=== PATIENT | female | born 1925 | race Caucasian/White ===

== ENCOUNTER → 2016-10-07 | Outpatient (CLI) | payer MEDICARE, BC ==
[~2016-10-07] MED LIST: ACETAMINOPHEN PO; ALEVE PO; AMIODARONE PO; ARIXTRA7.5 MG/0.6 SUBQ; ASPIRIN ENTERI325 M1 PO; ASPIRIN81 M1; ASPIRIN81 M1 PO; ASPIRINEC PO; COREG12.5 MG PO; CORRECTOL5 MG PO; COUMADIN2.5 MG PO; COUMADIN5 MG; COUMADIN5 MG PO; DOXYCYCLINE HY100 M1 PO; FOLIC ACID1 MG PO; HCTZ PO; IMDUR-ER30 MG PO; K-DUR20 ME1 PO; LASIX20 MG PO; NEXIUM PO; NISOLDIPINE40 MG PO; NITROGLYGERIN0.4 MG SL; PLAVIX PO; POTASSIUM CHLO10 ME1 PO; PROAMATINE10 MG; PROTONIX PO; RISPERDAL0.25 MG PO; RISPERIDONE PO; SIMVASTATIN40 MG PO; TOPROL XL 50 MG50 MG PO; VIT B12 SUBQ; VITAMIN B122500 MCG PO
--- NOTE | ~2016-10-07 | CT71 ---
[facility] A Service of [facility] RADIOLOGY TEXT RESULTS PATIENT: KARLEE BARDALES LOCATION: [facility] : [birth year] UNIT #: [id number] AGE: [address]: Dusty Ayala MD SEX: F ORDER DR: [id number] [facility] [address] [facility] [address] [facility]. [place], [place] [address] [id number] O MR#: [id number] #: [id number] NAME: KARLEE BARDALES : 1925 SEX: F STUDY DATE/TIME: 10/07/2016 13:42 UNIT: [facility] ROOM: STUDY DESCRIPTION: CT Head Wo Contrast Attending Physician: Dusty Ayala M.D. Referring Physician: Dusty Ayala M.D. Ordering Physician: Dusty Ayala M.D. Primary Care Physician: Dusty Ayala M.D. MEDICAL IMAGING REPORT This report is preliminary unless electronic signature is present EXAM CT head. DATE OF EXAM 10/07/2016 HISTORY Dementia. Dizziness, stumbling around 5-6 years. Falling 1-[address] head performed skull base through vertex without intravenous contrast. This CT exam was performed with one or more of the following radiation dose reduction techniques: automatic exposure control, adjustment of mA and/or kV according to patient size, and iterative reconstruction. COMPARISON 12/23/2009 FINDINGS The brainstem is unremarkable. The cerebellum and cerebral hemispheres show normal parker matter-white matter differentiation. No hemorrhage. No evidence of acute cortical ischemia. Extensive subcortical periventricular and deep white matter tract hypodensities bilaterally, relatively symmetrically. Significantly increased from 2009 and given patient's age and statistics, most likely reflecting sequelae of chronic microvascular ischemia. The midline structures are nondisplaced. The basal ganglia show no acute appearing abnormality. The ventricles, cisterns and sulci show mild generalized enlargement consistent with mild generalized atrophy. Slightly more pronounced than on prior examination. There is no intra or extraaxial mass effect or abnormal intracranial fluid collection. The intraorbital soft tissues are unremarkable. The visualized paranasal sinuses and mastoid air cells show areas of mild STS. [facility] A Service of [facility] RADIOLOGY TEXT RESULTS PATIENT: KARLEE BARDALES [id number] [birth year] UNIT #: [id number] AGE: [address]: Dusty Ayala MD SEX: F ORDER DR: mucosal thickening and ethmoid air cells. No evidence of acute sinusitis. No acute bony abnormality. IMPRESSION 1. No acute abnormality is seen in the brain. If the patient has ongoing neurological symptoms, consider follow-up imaging, preferable with MRI if the patient is a candidate. 2. Extensive subcortical periventricular and deep white matter tract probable sequelae of chronic microvascular ischemia. Significantly increased from 2009. 3. Mild generalized atrophy, more pronounced than in 2010. 4. Vascular calcifications. 5. Areas of mild mucosal thickening ethmoid air cells. No indication of acute sinusitis. Dictated by... Sandeep Bernard M.D. THIS IS AN ELECTRONICALLY VERIFIED REPORT Sandeep Bernard M.D. at 10/12/2016 10:29 AM Elizabeth TD: 10/07/2016 21:26 JOB #: [id number] MEDICAL IMAGING REPORT Page 1 of 1 COPY
== END | disposition home or self-care (01) ==
LOC: CCAT 13:09
DX: F03.90 Unspecified dementia, unspecified severity, without behavioral disturbance, psychotic disturbance, mood disturbance, and anxiety (principal); G31.9 Degenerative disease of nervous system, unspecified; J32.2 Chronic ethmoidal sinusitis
CPT/HCPCS: 70450

== ENCOUNTER 2016-10-29 07:30 | Emergency (ER) | payer MEDICARE, BC ==
[~2016-10-29 07:30] MED LIST changes: -ACETAMINOPHEN PO; -AMIODARONE PO; -ASPIRINEC PO; -COREG12.5 MG PO; -COUMADIN2.5 MG PO; -COUMADIN5 MG PO; -LASIX20 MG PO; -NEXIUM PO; -NITROGLYGERIN0.4 MG SL; -POTASSIUM CHLO10 ME1 PO; -RISPERDAL0.25 MG PO; -RISPERIDONE PO; -VITAMIN B122500 MCG PO
== END 2016-10-29 08:51 | disposition home or self-care (01) ==
LOC: CED 07:30
DX: S61.412A Laceration without foreign body of left hand, initial encounter (principal); I10 Essential (primary) hypertension; F41.9 Anxiety disorder, unspecified; F32.9 Major depressive disorder, single episode, unspecified; Z88.8 Allergy status to other drugs, medicaments and biological substances; K21.9 Gastro-esophageal reflux disease without esophagitis; Z88.2 Allergy status to sulfonamides; W19.XXXA Unspecified fall, initial encounter; Y92.009 Unspecified place in unspecified non-institutional (private) residence as the place of occurrence of the external cause; Z23 Encounter for immunization
CPT/HCPCS: 12001; 90471; 90715; 99283

== ENCOUNTER 2016-12-13 18:48 | Observation (INO) | payer MEDICARE, BC, OTHER ==
--- NOTE | ~2016-12-13 | EKG ---
PATIENT: KARLEE BARDALES UNIT #: [id number] Ventricular Rate: 72 BPM Atrial Rate: 72 BPM P-R Interval: 150 ms QRS Duration: 84 ms Q-T Interval: 410 ms QTC Calculation(Bezet): 448 ms P [place]: 73 degrees Calculated R [place]: 43 degrees Calculated T [place]: 21 degrees Diagnosis Line: Normal sinus rhythm Diagnosis Line: Normal ECG Diagnosis Line: When compared with ECG of 13-DEC-2016 20:23, Diagnosis Line: (unconfirmed) Diagnosis Line: No significant change was found Diagnosis Line: Confirmed by ELDA DUTTON MD ([id number]) on 12/15/2016 Diagnosis Line: 3:00:34 PM INTERPRETING MD: NATO SANTAMARIA
--- NOTE | ~2016-12-13 | HP ---
Unit #: [id number] #: [id number] Patient: KARLEE BARDALES [id number] [address] [place], [place] [address] [id number] I MR#: [id number] NAME: KARLEE BARDALES ROOM: 301 Age: 89 Sex: F Admission Date: 12/13/2016 : 1925 Attending Physician: Triston Schwab M.D. Primary Care Physician: Dusty Ayala M.D. HISTORY AND PHYSICAL CHIEF COMPLAINT Unwitnessed syncopal episode. HISTORY OF PRESENT ILLNESS This pleasant 89-year-old female with CAD, hypertension, dementia, is admitted for syncopal episodes. The patient's daughter found the patient lying on the floor, awake in her own home complaining of neck pain, left knee pain with left leg weakness secondary to left leg pain. She was brought to this emergency department tonight with fairly stable vital signs, although she was hypertensive. Multiple x-rays were performed which were negative for acute fracture. The patient does have dementia and she is a bit confused but believes that she passed out four or five times over the past several days without preceding symptoms. She states that she would find herself on the floor in another room, occasionally, this is associated with urinary incontinence. The patient was placed on Lasix a couple of weeks ago for pedal edema but, otherwise, no medication changes. Workup thus far shows hypokalemia. PAST MEDICAL HISTORY 1. Essential hypertension. 2. Hyperlipidemia. 3. Dementia. 4. 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 5. CAD status post PCI and stents followed by Dr. Geronimo. 6. Polyp removed in the colon. 7. Partial colectomy. 8. Hysterectomy. ALLERGIES Lipitor, Bactrim, Codeine. HOME MEDICATIONS 1. PRN Tylenol. 2. Aspirin 81 mg daily. 3. Coreg 12.5 mg b.i.d. 4. Nexium 40 mg daily as needed. 5. Folic acid 1 mg daily. 6. Lasix 20 mg daily, recently started. 7. Nitroglycerin p.r.n. 8. Potassium 10 mEq daily. 9. Risperdal 0.25 mg b.i.d. 10. Vitamin B12 1,000 mcg daily. Unit #: [id number] #: [id number] Patient: KARLEE BARDALES 11. Coumadin 5 mg daily except for 2.5 mg on Tuesdays and Fridays. SOCIAL HISTORY The patient lives alone. She is accompanied by her daughter. The patient is a lifelong smoker, rarely drinks alcohol. FAMILY HISTORY Noncontributory given the patient's age. REVIEW OF SYSTEMS Difficult to obtain as the patient is pleasantly confused and a poor historian. PHYSICAL EXAMINATION GENERAL APPEARANCE: A pleasant, young appearing, 89-year-old female currently in no acute distress. VITAL SIGNS: Temperature 98.1. Pulse 86. Respirations 12. Blood pressure 132/121. O2 saturation 100% on room air. HEENT: Eyes: PERRLA. Extraocular muscles are intact. Pharynx is benign. NECK: Supple without adenopathy or thyromegaly. CHEST: Clear on patient's supine exam. CARDIAC: Normal S1, S2 without S3, S4 or murmur. ABDOMEN: Bowel sounds are present. No hepatosplenomegaly, tenderness or masses. EXTREMITIES: Mild erythema of the left leg, right edema as compared to the left. There is a left knee effusion with quite a bit of left knee pain and maybe some left hip pain with movement of the left leg. The patient has a large bruise right calf. NEUROLOGIC: The patient is awake, alert. She is oriented to person. Her cranial nerves are intact. She has equal strength in the upper arms, is weak in the left leg secondary to left knee pain. DIAGNOSTIC STUDIES LABORATORY: Admission labs: Hematocrit 35.4, normal white count, platelet count. INR 1.7. SMA-12: Glucose 111, sodium 133, potassium 2.9, chloride 97, albumin 3.3. Cardiac markers were not done. Urinalysis: 1+ blood without significant white or red cells. IMAGING: Head CT: Atrophy, small vessel ischemic disease. CT of the C-spine, multilevel DJD. X-ray of the left knee: Moderate left knee effusion. Chest x-ray: Borderline sized heart. CARDIOVASCULAR: EKG: Normal sinus rhythm. Rate 75 with T-wave inversions noted in III and aVF. ASSESSMENT 1. Unwitnessed syncopal episodes. 2. CAD status post multivessel PCI and stent. 3. History of recurrent DVTs. The patient is anticoagulated with a slightly subtherapeutic INR. 4. Hypokalemia. Patient was started on Lasix a couple of weeks ago for pedal edema. 5. Dementia. 6. Hypertension. PLANS 1. Check cardiac enzymes. Unit #: [id number] #: [id number] Patient: KARLEE BARDALES 2. Replace potassium. Check magnesium. 3. X-ray of the left hip and pelvis. 4. Obtain Holter monitor, echo, EEG and ask Cardiology to see. 5. Physical Therapy to see. 6. Check orthostatics. Dictated by Gabriela Murdock M.D. AML/bd TD: 12/14/2016 06:20 JOB #: [id number] HISTORY AND PHYSICAL Page 1 of 1 X Gabriela Murdock MD HISTORY AND PHYSICAL
--- NOTE | ~2016-12-13 | CR169 ---
[facility] A Service of [facility] & [facility] RADIOLOGY TEXT RESULTS PATIENT: KARLEE BARDALES LOCATION: [facility] 301- : [birth year] UNIT #: [id number] AGE: [address]: Triston Schwab MD SEX: F ORDER DR: [id number] [facility] [address] [facility]. [place], [place] [address] [id number] I MR#: [id number] Acc #: [id number] NAME: KARLEE BARDALES : 1925 SEX: F STUDY DATE/TIME: 12/13/2016 20:44 UNIT: [address] ROOM: [facility] STUDY DESCRIPTION: CR Knee 2 Views Lt Attending Physician: Triston Schwab M.D. Ordering Physician: Chance Martinez M.D. Primary Care Physician: Dusty Ayala M.D. MEDICAL IMAGING REPORT This report is preliminary unless electronic signature is present EXAM Left knee, 2 views, 12/13/2016. HISTORY Left knee pain today status post fall. FINDINGS Two views of the left knee demonstrate no fracture. The bones are osteopenic. There is chondrocalcinosis involving the medial and lateral compartments of the knee. There is a moderate sized joint effusion. Atherosclerotic calcification is seen in the popliteal fossa. IMPRESSION 1. Osteopenia. No evidence of fracture. 2. Moderate-sized joint effusion. Dictated by... Bert Snow M.D. THIS IS AN ELECTRONICALLY VERIFIED REPORT Bert Snow M.D. at 12/15/2016 6:20 AM NASIR/allie TD: 12/14/2016 15:57 JOB #: [id number] MEDICAL IMAGING REPORT Page 1 of 1 COPY
--- NOTE | ~2016-12-13 | CT71 ---
[facility] A Service of [facility] RADIOLOGY TEXT RESULTS PATIENT: KARLEE BARDALES LOCATION: [facility] 301- : [birth year] UNIT #: [id number] AGE: [address]: Triston Schwab MD SEX: F ORDER DR: [id number] [facility] [address] [facility]. [place], [place] [address] [id number] I MR#: [id number] Acc #: [id number] NAME: KARLEE BARDALES : 1925 SEX: F STUDY DATE/TIME: 12/13/2016 20:56 UNIT: A U ROOM: [facility] STUDY DESCRIPTION: CT Head Wo Contrast Attending Physician: Triston Schwab M.D. Ordering Physician: Chance Martinez M.D. Primary Care Physician: Dusty Ayala M.D. MEDICAL IMAGING REPORT This report is preliminary unless electronic signature is present EXAM Head CT without contrast; 12/13/2016. HISTORY Syncopal episode at home today, status post fall. Generalized weakness, headache, head discomfort and posterior neck pain, hypertension. TECHNIQUE This CT exam was performed with one or more of the following radiation dose reduction techniques: automatic exposure control, adjustment of mA and/or kV according to patient size, and iterative reconstruction. FINDINGS Axial images of the brain obtained without contrast show generalized atrophy. There are chronic ischemic changes seen around the ventricles. There is no evidence of mass effect, hemorrhage, or edema and no midline shift is seen. No acute changes are noted. IMPRESSION Normal except for atrophy and chronic ischemic changes. No acute changes are seen. Dictated by... Bert Snow M.D. THIS IS AN ELECTRONICALLY VERIFIED REPORT Bert Snow M.D. at 12/15/2016 6:20 AM NASIR/chuck TD: 12/14/2016 16:03 JOB #: [id number] [facility] A Service of [facility] RADIOLOGY TEXT RESULTS PATIENT: KARLEE BARDALES LOCATION: [facility] 301-01 : [birth year] UNIT #: [id number] AGE: [address]: Triston Schwab MD SEX: F ORDER DR: MEDICAL IMAGING REPORT Page 1 of 1 COPY
--- NOTE | ~2016-12-13 | EE ---
Unit #: [id number] #: [id number] Patient: KARLEE BARDALES [id number] [address] [address] [id number] I MR#: [id number] NAME: KARLEE BARDALES : 1925 SEX: F STUDY DATE/TIME: 12/15/2016 UNIT: C3A PCU ROOM: 301 STUDY DESCRIPTION: EEG Attending Physician: Triston Schwab M.D. Referring Physician: Triston Schwab M.D. Primary Care Physician: Dusty Ayala M.D. NEURODIAGNOSTICS REPORT PROCEDURE PERFORMED EEG. REASON FOR STUDY Syncope. EEG DESCRIPTION This is an inpatient, digitally recorded, multi-montage, adult EEG with leads placed according to the International 10-20 system. Hyperventilation was not done, but photic stimulation was attempted. PROCEDURE REPORT With the patient fully aroused, there is 8-Hz posterior dominant alpha rhythm, which is symmetric and attenuates with eyes opening. The patient did become drowsy, and later on stage II sleep was seen. Hyperventilation was not done. Photic stimulation was attempted in intermittent stepwise pattern up to flash frequency of 30 Hz, but I did not see any driving, asymmetry or paroxysmal activity. There was phase reversing seen between C3 and P3 and T3 and T5 and rarely between T4 and O2. No clinical events were seen with this. There seemed to be sharp phase reversing, spike-like characteristics. IMPRESSION Abnormal, adult, awake and asleep EEG showing mostly left-sided and some rare right-sided discharges. Please clinically correlate with the patient's history and imaging studies. I am requesting this EEG report to be sent to Dr. Ayala and further evaluation if warranted because I do not know the patient's history, whether she has epilepsy or not or has medication or has seen somebody. Dictated by... Mauricio Duran/allie TD: 12/21/2016 08:50 JOB #: [id number] Unit #: [id number] #: [id number] Patient: KARLEE BARDALES NEURODIAGNOSTICS REPORT Page 1 of 1 X Kaity Rodrigues MD NEURODIAGNOSTICS REPORT
--- NOTE | ~2016-12-13 | DS ---
Unit #: [id number] #: [id number] Patient: KARLEE BARDALES [id number] [address] [place], [place] [address] [id number] I MR#: [id number] NAME: KARLEE BARDALES ROOM: 301 Age: 89 Sex: F Admission Date: 12/13/2016 : 1925 Discharge Date: 12/15/2016 Attending Physician: Triston Schwab M.D. Primary Care Physician: Dusty Ayala M.D. DISCHARGE SUMMARY PRIMARY DIAGNOSIS Unwitnessed syncope. SECONDARY DIAGNOSES 1. History of possible sick sinus syndrome with premature atrial contractions, ejection fraction of 60% to 65%. 2. History of multiple deep venous thromboses, on lifelong anticoagulation. 3. Coronary artery disease with history of stents. 4. Dementia with frequent hallucinations, likely vascular based on imaging. 5. Hypokalemia. 6. Physical deconditioning. HOSPITAL COURSE The patient was placed in observation status. Had echocardiogram and cardiology evaluation. We have adjusted the medications to remove Lasix and to take off Coreg at this time and give a trial of amiodarone. Unfortunately, patient cannot be removed from her blood thinners although there are reports of frequent falls at home. For the patient's ongoing hallucinations, I have increased the Risperdal at the request of the patient's daughter. I have advised close followup with primary care physician in one week. The patient will need to continue physical therapy with [facility] as already ongoing but this should not stop any time soon. Ultimately, the patient's home situation does not appear to be safe as her daughter reports that she does not feel like she can live with her mother as they do not get along well, but she is afraid to put her mother in a shelter because her mother has told her she would never speak to her again. I have expressed repeatedly to the daughter that this patient needs to be in a shelter if there is no other situation where she could be monitored 24 hours a day. I have expressed my concerns for her mother's safety if she were to remain in the current living situation. The daughter expresses understanding although she would not commit to proceeding with shelter placement, at least in a timely manner. She will continue to consider her options. DISCHARGE DISPOSITION To home. DISCHARGE STATUS Stable. DISCHARGE ACTIVITY Unit #: [id number] #: [id number] Patient: KARLEE BARDALES Ad gem at this time. I would recommend with assistance at all times for right now, but patient is apparently not going to be monitored 24 hours a day after discussion with the daughter. DISCHARGE DIET At this time, I am recommending an unrestricted diet for continued maximal caloric intake. FOLLOWUP 1. Followup with primary care physician in one week. 2. Followup with Dr. Ferreira in two to six weeks. 3. Continue followup with [facility] for PT/OT, medication compliance, and home safety evaluation for the next six weeks. DISCHARGE MEDICATIONS 1. Amiodarone 200 mg p.o. daily. 2. Tylenol 500 mg p.o. q.4-6 hours p.r.n. for fever. 3. Coumadin 2.5 mg on Tuesday and Tuesday and 5 mg on Tuesday, Tuesday, , Tuesday, Tuesday. 4. Risperdal 0.5 mg p.o. b.i.d. 5. Aspirin 81 mg p.o. daily. 6. Nexium 40 mg p.o. daily. 7. Potassium chloride 10 mEq p.o. daily. 8. Nitroglycerin 0.4 mg sublingual p.r.n. chest pain. 9. Vitamin B12 at 1000 mcg p.o. daily. 10. Folic acid 1 mg p.o. daily. Dictated by... Triston Schwab M.D. PADMINI/jonny TD: 12/16/2016 10:05 JOB #: [id number] DISCHARGE SUMMARY Page 1 of 1 X Triston Schwab MD X DISCHARGE SUMMARY
--- NOTE | ~2016-12-13 | EKG ---
PATIENT: KARLEE BARDALES UNIT #: [id number] Ventricular Rate: 75 BPM Atrial Rate: 75 BPM P-R Interval: 146 ms QRS Duration: 88 ms Q-T Interval: 400 ms QTC Calculation(Bezet): 446 ms P [place]: 70 degrees Calculated R [place]: 30 degrees Calculated T [place]: -9 degrees Diagnosis Line: Normal sinus rhythm Diagnosis Line: T wave abnormality, consider inferior ischemia Diagnosis Line: Abnormal ECG Diagnosis Line: When compared with ECG of 10-JAN-2010 03:12, Diagnosis Line: Premature ventricular complexes are no longer Diagnosis Line: Present Diagnosis Line: T wave inversion now evident in Inferior leads Diagnosis Line: T wave amplitude has increased in Anterior leads Diagnosis Line: Confirmed by ELDA DUTTON MD ([id number]) on 12/15/2016 Diagnosis Line: 2:58:32 PM INTERPRETING MD: NATO SANTAMARIA
--- NOTE | ~2016-12-13 | CR72 ---
[facility] A Service of [facility] & [facility] RADIOLOGY TEXT RESULTS PATIENT: KARLEE BARDALES LOCATION: [facility] 301- : [birth year] UNIT #: [id number] AGE: [address]: Triston Schwab MD SEX: F ORDER DR: [id number] [facility] [address]. [place], [place] [address] [id number] I MR#: [id number] Acc #: [id number] NAME: KARLEE BARDALES : 1925 SEX: F STUDY DATE/TIME: 12/13/2016 20:28 UNIT: [address] ROOM: [facility] STUDY DESCRIPTION: CR Chest Single View Portable Attending Physician: Triston Schwab M.D. Ordering Physician: Chance Martinez M.D. Primary Care Physician: Dusty Ayala M.D. MEDICAL IMAGING REPORT This report is preliminary unless electronic signature is present EXAM Portable chest 12/13/2016 HISTORY Shortness of breath for 1 week. Syncope and fall today. Benign essential hypertension. FINDINGS The heart is top normal in size. Lungs are hyperinflated but otherwise clear. There are no pleural effusions. IMPRESSION Top normal sized heart. No active pulmonary disease. Dictated by... Bert Snow M.D. THIS IS AN ELECTRONICALLY VERIFIED REPORT Bert Sonw M.D. at 12/15/2016 6:20 AM NASIR/senia TD: 12/14/2016 15:54 JOB #: [id number] MEDICAL IMAGING REPORT Page 1 of 1 COPY
--- NOTE | ~2016-12-13 | CR150 ---
[facility] A Service of [facility] & [facility] RADIOLOGY TEXT RESULTS PATIENT: KARLEE BARDALES LOCATION: [facility] 301- : [birth year] UNIT #: [id number] AGE: [address]: Triston Schwab MD SEX: F ORDER DR: [id number] [facility] [address] [facility]. [place], [place] [address] [id number] MR#: [id number] Acc #: [id number] NAME: KARLEE BARDALES : 1925 SEX: F STUDY DATE/TIME: 12/14/2016 0:03 [facility]: 301 STUDY DESCRIPTION: CR Hip Min 2 Views Lt Attending Physician: Triston Schwab M.D. Ordering Physician: Chance Martinez M.D. Primary Care Physician: Dusty Ayala M.D. MEDICAL IMAGING REPORT This report is preliminary unless electronic signature is present EXAM Left hip. INDICATIONS Left hip pain for 1 day. Fall. FINDINGS AP view of the pelvis and frog-leg lateral view of the left hip without comparison. There is no acute fracture or dislocation. There is mild axial joint space narrowing of both hips. Sacroiliac joints and pubic symphysis are within normal limits. IMPRESSION 1. No acute traumatic findings. 2. Degenerative changes of the hips. Dictated by... Hernando Rick M.D. THIS IS AN ELECTRONICALLY VERIFIED REPORT Hernando Rick M.D. at 12/14/2016 10:46 PM Bandar TD: 12/14/2016 17:31 JOB #: [id number] MEDICAL IMAGING REPORT Page 1 of 1 COPY
--- NOTE | ~2016-12-13 | CT52 ---
[facility] A Service of [facility] RADIOLOGY TEXT RESULTS PATIENT: KARLEE BARDALES LOCATION: [facility] 301- : [birth year] UNIT #: [id number] AGE: [address]: Triston Schwab MD SEX: F ORDER DR: [id number] [place] [id number] [facility]. [place], [place] [address] [id number] I MR#: [id number] Acc #: [id number] NAME: KARLEE BARDALES : 1925 SEX: F STUDY DATE/TIME: 12/13/2016 20:56 UNIT: C3A PCU ROOM: [facility] STUDY DESCRIPTION: CT Cervical Spine Wo Cont Attending Physician: Triston Schwab M.D. Ordering Physician: Chance Martinez M.D. Primary Care Physician: Dusty Ayala M.D. MEDICAL IMAGING REPORT This report is preliminary unless electronic signature is present EXAM CT scan of the cervical spine without contrast, 12/13/2016. HISTORY Posterior neck pain, status post fall at home today, syncopal episode. TECHNIQUE Spiral CT was performed through the cervical spine without intrathecal contrast administration, as per clinician request. Sagittal and coronal reconstructions were then performed through the cervical spine. This CT exam was performed with one or more of the following radiation dose reduction techniques: automatic exposure control, adjustment of mA and/or kV according to patient size, and iterative reconstruction. FINDINGS The examination is somewhat limited for determination of discogenic disease due to the lack of intrathecal contrast. Sagittal reconstructions demonstrate normal alignment of the cervical spine within a normal lordotic curve. There is degenerative change with moderate to marked disc space narrowing at C5-6 with degenerative endplate changes at C5-6. There are marginal osteophytes from C3-C6 and there is degenerative change involving the articular facets. The bones are osteopenic. There is no CT evidence of cervical spine fracture. 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 No CT evidence of cervical spine fracture. Dictated by... Bert Snow M.D. [facility] A Service of [facility] RADIOLOGY TEXT RESULTS PATIENT: KARLEE BARDALES LOCATION: [facility] 301-01 : [birth year] UNIT #: [id number] AGE: [address]: Triston Schwab MD SEX: F ORDER DR: THIS IS AN ELECTRONICALLY VERIFIED REPORT Bert Snow M.D. at 12/15/2016 6:20 AM NASIR/allie TD: 12/14/2016 16:08 JOB #: [id number] MEDICAL IMAGING REPORT Page 1 of 1 COPY
--- NOTE | ~2016-12-13 | HM ---
Unit #: [id number] #: [id number] Patient: KARLEE BARDALES [id number] [facility] [address], [place] [address] [id number] MR#: [id number] NAME: KARLEE BARDALES : 1925 SEX: F STUDY DATE/TIME: 12/14/2016 UNIT: C3A PCU ROOM: 301 STUDY DESCRIPTION: Attending Physician: Triston Schwab M.D. Primary Care Physician: Dusty Ayala M.D. CARDIOLOGY REPORT EXAM 24-hour Holter monitor. DATE APPLIED 12/14/2016 DATE SCANNED 12/19/2016 READ BY [facility]. ORDERED BY Triston Schwab M.D. REASON FOR STUDY Syncope. FINDINGS 1. Baseline rhythm shows normal sinus rhythm. Minimal recorded heart rate is 55, maximum recorded heart rate is 81 beats per minute. 2. There is no significant bradycardia. 3. One PVC was noted in 24 hours. 4. Occasional premature atrial contractions are seen with a total of 663 isolated PACs. 5. There are six runs of atrial tachycardia. The shortest run consisting of four beats at a rate of 131 beats per minute with the longest run consisting of 13 beats at a rate of 124 beats per minute. There is 1:1 AV conduction with atrial tachycardia. 6. All runs of atrial tachycardia spontaneously converted to normal sinus rhythm without intervening bradycardia. There is no sustained atrial or ventricular tachy arrhythmia. 7. There is no significant AV chad block, sinus arrest, or sinus pause. 8. The patient did not report any symptom or activity diary. IMPRESSION Twelve hours and 44 minutes of cardiac monitoring shows: 1. Normal sinus rhythm. 2. Short runs of paroxysmal atrial tachycardia. 3. No significant slowing of the heart rate. 4. No AV chad block, sinus arrest, or sinus pause. Unit #: [id number] #: [id number] Patient: KARLEE BARDALES Dictated by... Mauricio Fontanez/jonny TD: 12/20/2016 09:50 JOB #: [id number] CC: Triston Schwab M.D. CARDIOLOGY REPORT Page 1 of 1 X Jarrod Ferreira MD [facility] MONITOR REPORT
--- NOTE | ~2016-12-13 | CO ---
Unit #: [id number] #: [id number] Patient: KARLEE BARDALES [id number] [facility] [address] [facility]. [place], [place] [address] [id number] MR#: [id number] NAME: KARLEE BARDALES ROOM: 301 Age: 89 Sex: F Admission Date: 12/13/2016 : 1925 Attending Physician: Triston Schwab M.D. Primary Care Physician: Dusty Ayala M.D. Consultation Date: 12/14/2016 CONSULTATION REPORT DICTATED FOR Dr. Jarrod Ferreira, [facility]. REASON FOR CONSULT Syncope. HISTORY OF PRESENT ILLNESS The patient is an 89-year-old white female, who follows with Dr. Geronimo in the office for history of coronary artery disease with PCI and stents x3, details are unavailable; dementia; hypertension; recurrent DVT, on lifelong anticoagulation; recurrent syncopal episodes, never been witnessed. The patient's daughter is at the bedside and provides history; although, the patient's daughter has never witnessed any of her episodes and the patient is a very poor historian with her dementia. The patient's daughter states that she was at her house around noon yesterday and then returned at 5:30, where she found her mother on the floor, but her mother was awake and alert. The patient states that she had no visual changes. She was a little lightheaded and possibly short of breath; however, no palpitations or chest pain that she can remember. The patient has had multiple of these episodes. Daughter describes one where she was on the commode, but she cannot tell when that was, that the patient got dizzy and lied down on the floor. The patient's daughter also states the patient has fallen down the stairs, but unsure if she passed out with that episode. The patient's daughter states she has never broken a bone or severely injured herself from any of her falls. The patient follows with Dr. Geronimo in the office. It is unclear as to when her last heart catheterization was or stress test as the daughter does not now. The patient's daughter does state that her blood pressure fluctuates quite a bit, where it will be high 1 minute and 10 minutes later, will be very low and she has had her medications adjusted due to this issue. We are asked to see the patient for her syncope to rule out any cardiac causes. PAST MEDICAL HISTORY 1. Coronary artery disease, status post stents x3. 2. Hypertension. 3. Dementia. 4. Recurrent DVT, on lifelong anticoagulation. PAST SURGICAL HISTORY Includes; Unit #: [id number] #: [id number] Patient: KARLEE BARDALES 1. Cholecystectomy. 2. Hysterectomy. 3. Polyp removal. REVIEW OF SYSTEMS 10-point review of systems is negative except for what is detailed above in the HPI. PHYSICAL EXAMINATION GENERAL: This is an 89-year-old white female, who is alert, a poor historian. VITAL SIGNS: Blood pressure 125/63, temp 99, pulse 73, respirations 18. HEENT: Pupils are equal, round, and reactive. Oral mucosa is moist. NECK: No JVD. No thyromegaly. No lymphadenopathy. No carotid bruits. HEART: S1 and S2. No S3 or S4. No clicks, no rubs, no murmurs. LUNGS: Clear. ABDOMEN: Soft. Bowel sounds positive. Nontender and nondistended. EXTREMITIES: Right leg is larger than the left leg due to chronic venous insufficiency as well as the patient has a vein stripping in the past. NEUROLOGICAL: No neuro deficits noted. ALLERGIES Atorvastatin, codeine, sulfamethoxazole, and Bactrim. HOME MEDICATIONS Include Coumadin 2.5 mg Tuesdays and Fridays and 5 mg all other days, Ecotrin 81 mg daily, nitroglycerin 0.4 sublingual as needed, Coreg 12.5 b.i.d., vitamin B12 1000 mcg daily, Equate Extra-Strength 500 mg every 6 hours as needed for pain, folic acid 1 mg daily, omeprazole 40 mg as needed, risperidone 0.25 mg b.i.d. DIAGNOSTIC STUDIES LABORATORY RESULTS: White count 8, hemoglobin 11.1, hematocrit 33.3, platelets are 163. INR is 1.8. Troponin 0.08, then 0.07. Sodium 138, potassium 3.4, chloride 101, CO2 of 28, glucose 86, BUN 14, creatinine 0.9. GFR is 56.7. Mag is 1.7. UA was negative for leukocytes and nitrites. IMPRESSION 1. Recurrent syncope, etiology undetermined, most likely secondary to postural hypotension. Consider ruling out seizure disorder as the patient has lost control of urine and bowel. 2. Sick sinus syndrome with premature atrial contractions. PLAN 1. Plan would treat PACs with amiodarone and not risk slowing the heart rate or dropping blood pressure with the Coreg. 2. Cut down Coreg to a minimum dose and stop Lasix to avoid postural hypotension. 3. The patient may need an event recorder. We will start amiodarone 200 mg p.o. daily and obtain orthostatic blood pressures. PT and OT to ambulate the patient in the hallway. Further recommendations pending current workup and test results. Echo has been done and is completed; however, it is pending right now. We will check for any valvular abnormalities that could lead to syncopal episodes. Dictated by... Unit #: [id number] #: [id number] Patient: KALREE BARDALES APRN LA/ilia TD: 12/14/2016 12:51 JOB #: [id number] CONSULTATION REPORT Page 1 of 1 X X CONSULTATION REPORT
[2016-12-13 20:21] LABS: BASOPHIL# 0.1 X10e3 (0-0.3); BASOPHIL% 0.7 % (0-2.5); EOSINOPHIL% 0.1 % (0.0-7.0); HEMATOCRIT 35.4 % (35.0-45.0); HEMOGLOBIN 11.9 gm/dL (12.0-16.0); LYMPHOCYTE# 1.3 X10e3 (1.0-3.5); LYMPHOCYTE% 13.6 % (17.0-45.0); MEAN CELL VOLUME 90.7 FL (83-96); MEAN CORPUSCULAR HEMOGLOBIN 30.5 PG (28-34); MEAN CORPUSCULAR HGB CONC 33.7 g/dL (30-36); MEAN PLATELET VOLUME 8.6 FL (6.5-11.5); MONOCYTE# 1.1 X10e3 (0-1.0); MONOCYTE% 12.4 % (3.0-12.0); NEUTROPHIL# 6.7 X10e3 (1.5-7.1); NEUTROPHIL% 73.2 % (40-75); PLATELET COUNT 162 X10e3 (140-420); RED CELL DISTRIBUTION WIDTH 13.7 % (11.0-15.5); WHITE BLOOD COUNT 9.2 X10e3 (4.0-10.5)
[2016-12-13 20:24] LABS: DIFF IND NO
[2016-12-13 20:34] LABS: INR 1.7; PROTHROMBIN TIME (PATIENT) 18.1 SECONDS (10.0-11.7)
[2016-12-13 20:37] LABS: URINE SOURCE CLEAN CATCH
[2016-12-13 20:42] LABS: URINE APPEARANCE CLEAR; URINE BILIRUBIN NEG (NEG); URINE BLOOD 1+ (NEG); URINE COLOR YELLOW; URINE GLUCOSE NEG (NEG); URINE KETONE NEG (NEG); URINE LEUKOCYTE ESTERASE NEG (NEG); URINE NITRATE NEG (NEG); URINE PROTEIN NEG (NEG); URINE SPECIFIC GRAVITY 1.013 (1.003-1.035); URINE UROBILINOGEN 0.2 MG/DL (NEG)
[2016-12-13 20:46] LABS: CULTURE INDICATED? YES; URINE BACTERIA AUWI 1+ (NEGATIVE); URINE SQUAMOUS EPITHELIAL CELL NONE SEEN /[HPF]; UWBCS1 AUWI 0-2 (0-5)
[2016-12-13 21:01] LABS: ALBUMIN SERUM 3.3 g/dL (3.5-5.0); BILIRUBIN, DIRECT 0.4 mg/dL (0.0-0.2); BILIRUBIN,INDIRECT 1.4 mg/dL (0.0-0.9); BILIRUBIN,TOTAL 1.8 mg/dL (0.2-2.0); CALCIUM SERUM 8.6 mg/dL (8.4-10.2); GLOM FILT RATE Estimated 49.9 mL/min (>60); PROTEIN TOTAL SERUM 7.2 g/dL (6.0-8.3)
[2016-12-13 21:03] LABS: POTASSIUM 2.9 mmol/L (3.5-5.1)
[2016-12-13] MEDS ORDERED: ACETAMINOPHEN PO (22:08)
[2016-12-13] MEDS ORDERED: ASPIRINEC PO (22:08)
[2016-12-13] MEDS ORDERED: NEXIUM PO (22:09)
[2016-12-13] MEDS ORDERED: COREG12.5 MG PO (22:09)
[2016-12-13] MEDS ORDERED: NITROGLYGERIN0.4 MG SL (22:10)
[2016-12-13] MEDS ORDERED: FOLIC ACID1 MG PO (22:10)
[2016-12-13] MEDS ORDERED: LASIX20 MG PO (22:10)
[2016-12-13] MEDS ORDERED: POTASSIUM CHLO10 ME1 PO (22:11)
[2016-12-13] MEDS ORDERED: RISPERDAL0.25 MG PO (22:11)
[2016-12-13] MEDS ORDERED: VITAMIN B122500 MCG PO (22:12)
[2016-12-13] MEDS ORDERED: COUMADIN2.5 MG PO (22:12)
[2016-12-13] MEDS ORDERED: COUMADIN5 MG PO (22:13)
[2016-12-14 00:50] LABS: %MB 1.9 % (0.0-4.0); MB 5.3 ng/ml
[2016-12-14 08:48] LABS: BASOPHIL% 0.2 % (0-2.5); EOSINOPHIL% 0.1 % (0.0-7.0); HEMATOCRIT 33.3 % (35.0-45.0); HEMOGLOBIN 11.1 gm/dL (12.0-16.0); MEAN CELL VOLUME 91.2 FL (83-96); MEAN CORPUSCULAR HEMOGLOBIN 30.5 PG (28-34); MEAN CORPUSCULAR HGB CONC 33.5 g/dL (30-36); MEAN PLATELET VOLUME 8.6 FL (6.5-11.5); MONOCYTE# 0.9 X10e3 (0-1.0); NEUTROPHIL# 6.1 X10e3 (1.5-7.1); NEUTROPHIL% 76.7 % (40-75); PLATELET COUNT 163 X10e3 (140-420); RED BLOOD COUNT 3.65 X10e (3.90-5.30); RED CELL DISTRIBUTION WIDTH 14.1 % (11.0-15.5)
[2016-12-14 08:52] LABS: DIFF IND NO
[2016-12-14 09:15] LABS: INR 1.8; PROTHROMBIN TIME (PATIENT) 19.5 SECONDS (10.0-11.7)
[2016-12-14 10:12] LABS: BUN/CREATININE RATIO 15.55; CALCIUM SERUM 8.6 mg/dL (8.4-10.2); CREATININE SERUM 0.9 mg/dL (0.6-1.4); GLOM FILT RATE Estimated 56.7 mL/min (>60); MAGNESIUM 1.7 mg/dL (1.6-3.0); POTASSIUM 3.4 mmol/L (3.5-5.1)
[2016-12-14 10:34] LABS: %MB 2.1 % (0.0-4.0); MB 3.8 ng/ml
[2016-12-15 05:38] LABS: BASOPHIL% 0.4 % (0-2.5); EOSINOPHIL% 0.4 % (0.0-7.0); HEMATOCRIT 33.6 % (35.0-45.0); HEMOGLOBIN 11.2 gm/dL (12.0-16.0); LYMPHOCYTE# 1.2 X10e3 (1.0-3.5); LYMPHOCYTE% 16.1 % (17.0-45.0); MEAN CELL VOLUME 92.1 FL (83-96); MEAN CORPUSCULAR HEMOGLOBIN 30.8 PG (28-34); MEAN CORPUSCULAR HGB CONC 33.4 g/dL (30-36); MEAN PLATELET VOLUME 8.8 FL (6.5-11.5); MONOCYTE# 0.7 X10e3 (0-1.0); NEUTROPHIL# 5.3 X10e3 (1.5-7.1); NEUTROPHIL% 73.1 % (40-75); PLATELET COUNT 185 X10e3 (140-420); RED BLOOD COUNT 3.64 X10e (3.90-5.30); RED CELL DISTRIBUTION WIDTH 13.8 % (11.0-15.5); WHITE BLOOD COUNT 7.2 X10e3 (4.0-10.5)
[2016-12-15 05:47] LABS: DIFF IND NO
[2016-12-15 06:20] LABS: BUN/CREATININE RATIO 18.88; CALCIUM SERUM 8.6 mg/dL (8.4-10.2); CREATININE SERUM 0.9 mg/dL (0.6-1.4); GLOM FILT RATE Estimated 56.7 mL/min (>60); MAGNESIUM 2.2 mg/dL (1.6-3.0); POTASSIUM 3.5 mmol/L (3.5-5.1)
[2016-12-15 12:31] LABS: INR 1.7; PROTHROMBIN TIME (PATIENT) 18.6 SECONDS (10.0-11.7)
[2016-12-15] MEDS ORDERED: AMIODARONE PO (15:10)
[2016-12-15] MEDS ORDERED: RISPERIDONE PO (15:12)
== END 2016-12-15 16:15 | disposition home or self-care (01) ==
LOC: CED 18:48 → CEDOF 23:23 → CED 23:23 → CEDOF 23:30 → C3A PCU 23:30 → CED 23:30 → CEDOF 12-14 01:16 → C3A PCU 12-14 01:16
PROVIDERS: Emergency Medicine; Internal Medicine
DX: R55 Syncope and collapse (principal); F03.90 Unspecified dementia, unspecified severity, without behavioral disturbance, psychotic disturbance, mood disturbance, and anxiety; I25.10 Atherosclerotic heart disease of native coronary artery without angina pectoris; I10 Essential (primary) hypertension; I49.5 Sick sinus syndrome; I49.1 Atrial premature depolarization; E87.6 Hypokalemia; Z95.5 Presence of coronary angioplasty implant and graft; Z86.718 Personal history of other venous thrombosis and embolism; Z79.01 Long term (current) use of anticoagulants
CPT/HCPCS: 36415; 70450; 71010; 72125; 73502; 73560; 80048; 80076; 81003; 82550; 82553; 83735; 84443; 84484; 85025; 85610; 87086; 87088; 87186; 93005; 93225; 93226; 93306; 95816; 96360; 96361; 96365; 96366; 97110; 97116; 97161; 97166; 97535; 99285; G0378; G8978-GP; G8979-GP; G8987-GO; G8988-GO; J3475